=== PATIENT | female | born 1990 | race Caucasian/White ===

== ENCOUNTER 2021-12-31 18:00 | Inpatient (IN) | payer OTHER, BC ==
[2022-01-01] MEDS ORDERED: Bupivacaine/Epinephrine 0.25% 30 ML VIAL ONE (08:00)
[2022-01-01] MEDS ORDERED: Bupivacaine HCl 0.5%/Epinephrine 1:200,000/PF 30 ml Vial ONE (08:00)
[2022-01-01] MEDS ORDERED: Ondansetron PF 4 MG/2 ML Vial IVP PRN ×2 (08:46→20:31)
[2022-01-01] MEDS ORDERED: Misoprostol 200 MCG TAB PR PRN (08:46)
[2022-01-01] MEDS ORDERED: Promethazine HCl 25 MG/ML VIAL IM PRN ×2 (08:46→20:31)
[2022-01-01] MEDS ORDERED: Methylergonovine 0.2 MG/ML VIAL IM PRN (08:46)
[2022-01-01] MEDS ORDERED: Ibuprofen 800 MG TAB PO PRN (08:46)
[2022-01-01] MEDS ORDERED: Lidocaine 1% (PF) 30 ML VIAL SC PRN (08:46)
[2022-01-01] MEDS ORDERED: Butorphanol Tartrate 1 MG/ML VIAL SLOW IVP PRN (08:46)
[2022-01-01] MEDS ORDERED: HYDROcodone/Acetaminophen 5/325 mg Tablet PO PRN ×2 (08:46)
[2022-01-01] MEDS ORDERED: hydrALAZINE 20 MG/ML VIAL SLOW IVP PRN (08:46)
[2022-01-01] MEDS ORDERED: Lactated Ringer's 1,000 ML IV SCH (09:00)
[2022-01-01] MEDS ORDERED: Misoprostol 100 MCG TAB VAG SCH (09:00)
[2022-01-01] MEDS ORDERED: NS w/ Oxytocin 30 units 500 ML IV SCH ×2 (09:00)
[2022-01-01] MEDS ORDERED: Misoprostol 100 MCG TAB ONE (10:00)
[2022-01-01 10:14] LABS: Hemoglobin 12.2 g/dL (12.0-15.5); Mean Corpuscular HGB CONC 34.9 g/dL (32.0-36.0); Mean Corpuscular Volume 91.9 fl (81.6-98.3); Mean Platelet Volume 10.6 fl (7.4-10.4); Platelet Count 320 10x3/uL (150-450); RBC Distribution Width 12.6 % (11.5-14.5); Red Blood Cell (RBC) Count 3.81 10x6/uL (3.90-5.03); White Blood Cell (WBC) Count 9.4 10x3/uL (3.5-10.5)
[2022-01-01 10:36] VITALS: BMI 31.9
[2022-01-01 10:38] LABS: Syphilis Antibody Nonreactive (Nonreactive); Syphilis Antibody Index 0.03 S/CO (<1.00 Non-Reactive)
[2022-01-01 10:39] LABS: HBSAg Index 0.27 S/CO (0-0.99); Hep B Surf Ag Non-Reactive S/CO (NonReactive)
[2022-01-01 16:05] LABS: SARS-CoV-2 NAA Rapid Test Not Detected (NotDetected)
[2022-01-01] MEDS ORDERED: Fentanyl 2 mcg/Bup 0.1% Cadd 100 ML ONE (16:23)
[2022-01-01] MEDS ORDERED: ePHEDrine Sulfate 50 MG/10 ML VIAL SLOW IVP PRN (20:31)
[2022-01-01] MEDS ORDERED: diphenhydrAMINE 50 MG/ML VIAL IVP PRN (20:31)
[2022-01-01] MEDS ORDERED: Lactated Ringer's 500 ML IV PRN (20:31)
[2022-01-01] MEDS ORDERED: Naloxone HCl 0.4 mg/ml Vial IVP PRN ×2 (20:31)
[2022-01-01] MEDS ORDERED: Acetaminophen 325 MG TAB PO PRN (20:31)
[2022-01-01] MEDS ORDERED: Moisturizing Cream (Eucerin) 113 GM JAR TOP PRN (20:31)
[2022-01-01] MEDS ORDERED: Communication Order-Pharmacy FS SCH (20:45)
[2022-01-01] MEDS: Fentanyl 2 mcg/Bupivacaine 0.1% Cassette 100 ML EPIDURAL SCH (23:54)
[2022-01-02] MEDS ORDERED: Calcium Carbonate 500 MG ChewTAB PO PRN (00:22)
[2022-01-02] MEDS: Fentanyl 2 mcg/Bupivacaine 0.1% Cassette 100 ML EPIDURAL SCH ×2 (07:09→13:39)
[2022-01-02] MEDS ORDERED: Fentanyl 100 MCG/2 ML VIAL ONE ×2 (08:30→12:07)
[2022-01-02] MEDS ORDERED: diphenhydrAMINE 50 MG/ML VIAL IVP SCH (11:15)
[2022-01-02 18:18] LABS: RapidComm Collect By NURSE
[2022-01-02 18:19] LABS: RapidComm Collect By NURSE; pH (Cord, venous) 7.276 (7.250-7.350)
[2022-01-02] MEDS ORDERED: Milk Of Magnesia 30 ML UDCUP PO PRN (21:13)
[2022-01-02] MEDS ORDERED: Ondansetron PF 4 MG/2 ML Vial IVP PRN (21:13)
[2022-01-02] MEDS ORDERED: hydrALAZINE 20 MG/ML VIAL SLOW IVP PRN (21:13)
[2022-01-02] MEDS ORDERED: Misoprostol 200 MCG TAB VAG PRN (21:13)
[2022-01-02] MEDS ORDERED: Bisacodyl 10 MG SUPP PR PRN (21:13)
[2022-01-02] MEDS ORDERED: Boostrix 0.5 ML (Tdap) VIAL (>/=7 yrs of age) IM ONE (21:13)
[2022-01-02] MEDS ORDERED: Lanolin Ointment 7 GM TUBE TOP PRN (21:13)
[2022-01-02] MEDS ORDERED: HYDROcodone/Acetaminophen 5/325 mg Tablet PO PRN ×2 (21:13)
[2022-01-02] MEDS ORDERED: Benzocaine-Menthol 82.5 ML CAN TOP PRN (21:13)
[2022-01-02] MEDS ORDERED: NS w/ Oxytocin 30 units 500 ML IV SCH (21:15)
[2022-01-02] MEDS ORDERED: Docusate 100 MG CAP PO SCH (21:30)
[2022-01-03] MEDS: Acetaminophen 500 MG TAB PO PRN ×2 (04:48→16:06)
[2022-01-03] MEDS: Ferrous Sulfate 325 MG TAB PO SCH ×2 (07:42→16:07)
[2022-01-03] MEDS: Docusate 100 MG CAP PO SCH (09:24)
[2022-01-03] MEDS: Prenatal Vitamin 1 TAB PO SCH (09:24)
[2022-01-04] MEDS: Docusate 100 MG CAP PO SCH ×2 (06:35→08:29)
[2022-01-04 07:29] VITALS: BP 110/65; TEMP 97.9
[2022-01-04] MEDS: Ferrous Sulfate 325 MG TAB PO SCH (08:00)
[2022-01-04] MEDS: Prenatal Vitamin 1 TAB PO SCH (08:29)
== END 2022-01-04 16:20 | disposition home or self-care (01) | DRG 806 ==
LOC: CSHLD 01-01 08:44 → CSHPP 01-02 21:30
PROVIDERS: ADMIT Obstetrics & Gynecology; ATTEND Advanced Practice Midwife
PROC: 3E0P7VZ Introduction of Hormone into Female Reproductive, Via Natural or Artificial Opening (ICD-10-PCS; 2022-01-01)
PROC: 0U7C7ZZ Dilation of Cervix, Via Natural or Artificial Opening (ICD-10-PCS; 2022-01-01)
PROC: 10E0XZZ Delivery of Products of Conception, External Approach (ICD-10-PCS; principal; 2022-01-02)
DX: O36.5930 Maternal care for other known or suspected poor fetal growth, third trimester, not applicable or unspecified (principal); O98.52 Other viral diseases complicating childbirth; Z37.0 Single live birth; Z3A.38 38 weeks gestation of pregnancy; Z20.822 Contact with and (suspected) exposure to COVID-19; F41.9 Anxiety disorder, unspecified; O99.344 Other mental disorders complicating childbirth; B00.9 Herpesviral infection, unspecified; Z88.8 Allergy status to other drugs, medicaments and biological substances; Z79.890 Hormone replacement therapy; Z79.899 Other long term (current) drug therapy; O76 Abnormality in fetal heart rate and rhythm complicating labor and delivery
CPT/HCPCS: 36415; 51702; 82805; 85027; 86780; 86850; 86900; 86901; 87340; J1200; J2405; U0002